=== PATIENT | male | born 1980 | race Two or more races ===

== ENCOUNTER 2022-09-24 22:21 | Emergency (ER) | payer OTHER ==
[~2022-09-24] VITALS: Ht 182.9 cm; Wt 103.0 kg
[2022-09-24] MEDS ORDERED: HYDROCODONE/APAP 10-325 MG TABLET PO ONE (23:30)
[2022-09-24] MEDS ORDERED: ONDANSETRON ODT 4 MG TAB.RAPDIS SL ONE (23:30)
[2022-09-24] MEDS ORDERED: ONDANSETRON ODT 4 MG TAB.RAPDIS ONE (23:39)
[2022-09-24] MEDS ORDERED: HYDROCODONE/APAP 10-325 MG TABLET ONE (23:40)
[2022-09-25] MEDS ORDERED: HYDR-4209 PO (00:54)
[2022-09-25] MEDS ORDERED: CYCL10TA9 PO (00:54)
== END 2022-09-25 07:16 | disposition home or self-care (01) ==
LOC: ER 22:25
DX: S16.1XXA Strain of muscle, fascia and tendon at neck level, initial encounter (principal); S39.012A Strain of muscle, fascia and tendon of lower back, initial encounter; S20.211A Contusion of right front wall of thorax, initial encounter; V49.40XA Driver injured in collision with unspecified motor vehicles in traffic accident, initial encounter; Y92.410 Unspecified street and highway as the place of occurrence of the external cause
CPT/HCPCS: 71045; 72100; A4663; Q0162

== ENCOUNTER 2024-07-11 22:55 | Emergency (ER) | payer OTHER ==
[~2024-07-11] VITALS: Ht 182.9 cm; Wt 102.1 kg
[~2024-07-11 22:55] MED LIST: CYCL10TA9 PO; HYDR-4209 PO
[2024-07-11] MEDS ORDERED: CYCLOBENZAPRINE HCL 10 MG TABLET ONE (23:38)
[2024-07-11] MEDS ORDERED: ONDANSETRON ODT 4 MG TAB.RAPDIS ONE (23:38)
[2024-07-11] MEDS ORDERED: HYDROCODONE/APAP 10-325 MG TABLET ONE (23:38)
[2024-07-11] MEDS: CYCLOBENZAPRINE HCL 10 MG TABLET PO ONE (23:42)
[2024-07-11] MEDS: HYDROCODONE/APAP 10-325 MG TABLET PO ONE (23:42)
[2024-07-11] MEDS: ONDANSETRON ODT 4 MG TAB.RAPDIS SL ONE (23:42)
[2024-07-12] MEDS ORDERED: OXYC-128 PO (01:26)
[2024-07-12 01:40] VITALS: BP 119/68; TEMP 98.6; O2SAT 99
== END 2024-07-12 01:41 | disposition home or self-care (01) ==
LOC: ER 22:57
DX: S16.1XXA Strain of muscle, fascia and tendon at neck level, initial encounter (principal); S40.022A Contusion of left upper arm, initial encounter; Z98.890 Other specified postprocedural states; Z79.891 Long term (current) use of opiate analgesic; Z79.899 Other long term (current) drug therapy; V89.2XXA Person injured in unspecified motor-vehicle accident, traffic, initial encounter; Y93.89 Activity, other specified; Y92.89 Other specified places as the place of occurrence of the external cause; Y99.8 Other external cause status
CPT/HCPCS: 72125; 73060; A4606; A4663; Q0162

== ENCOUNTER 2025-02-02 12:18 | Emergency (ER) | payer OTHER ==
[~2025-02-02] VITALS: Ht 182.9 cm; Wt 99.8 kg
[~2025-02-02 12:18] MED LIST changes: +OXYC-128 PO
[2025-02-02] MEDS ORDERED: MORPHINE SULFATE 2 MG/1 ML DISP.SYRIN IV ONE (12:45)
[2025-02-02] MEDS ORDERED: diphenhydrAMINE 50 MG/1 ML VIAL ONE (12:52)
[2025-02-02] MEDS ORDERED: MORPHINE SULFATE 4 MG/1 ML DISP.SYRIN ONE ×2 (12:53→14:01)
[2025-02-02] MEDS ORDERED: TDAP DIPH,PERTUSS,TET VAC/PF 0.5 ML DISP.SYRIN IM ONE (12:53)
[2025-02-02] MEDS: MORPHINE SULFATE 4 MG/1 ML DISP.SYRIN IM ONE ×2 (12:54→14:02)
[2025-02-02] MEDS: diphenhydrAMINE 50 MG/1 ML VIAL IM ONE (12:54)
[2025-02-02] MEDS ORDERED: HYDR-3980 PO (12:57)
[2025-02-02] MEDS ORDERED: AMOX-430 PO (12:57)
[2025-02-02] MEDS: TDAP DIPH,PERTUSS,TET VAC/PF 0.5 ML DISP.SYRIN IM ONE (13:04)
[2025-02-02] MEDS: LIDOCAINE HCL 1% 20 ML VIAL TP ONE (13:20)
[2025-02-02] MEDS ORDERED: NEOMY/BACITRA/POLYMYXIN B OINT UD PACKET TP ONE (13:45)
[2025-02-02] MEDS: NEOMY/BACITRA/POLYMYXIN B OINT UD PACKET TP ONE (13:49)
[2025-02-02 14:20] VITALS: BP 134/72; O2SAT 98
== END 2025-02-02 14:21 | disposition home or self-care (01) ==
LOC: ER 12:20
DX: S62.647A Nondisplaced fracture of proximal phalanx of left little finger, initial encounter for closed fracture (principal); W54.0XXA Bitten by dog, initial encounter; Y93.89 Activity, other specified; Y92.89 Other specified places as the place of occurrence of the external cause; Y99.8 Other external cause status
CPT/HCPCS: 12001; 29130; 73120; 90471; 90715; 96372; 99284; J1200; J2270; A4606; A4663

== ENCOUNTER 2025-02-04 11:21 | Emergency (ER) | payer OTHER ==
[~2025-02-04] VITALS: Ht 182.9 cm; Wt 99.8 kg
[~2025-02-04 11:21] MED LIST changes: +AMOX-430 PO; +HYDR-3980 PO
[2025-02-04] MEDS ORDERED: NEOMY/BACITRA/POLYMYXIN B OINT UD PACKET TP ONE (11:59)
[2025-02-04] MEDS: NEOMY/BACITRA/POLYMYXIN B OINT UD PACKET TP ONE (12:09)
[2025-02-04 12:26] VITALS: BP 112/77; TEMP 97.9; O2SAT 99
== END 2025-02-04 12:27 | disposition home or self-care (01) ==
LOC: ER 11:21
DX: S61.237D Puncture wound without foreign body of left little finger without damage to nail, subsequent encounter (principal); Z48.00 Encounter for change or removal of nonsurgical wound dressing; X58.XXXD Exposure to other specified factors, subsequent encounter
CPT/HCPCS: A4606; A4663

== ENCOUNTER 2025-02-18 17:13 | Emergency (ER) | payer OTHER ==
[~2025-02-18] VITALS: Ht 182.9 cm; Wt 99.8 kg
[2025-02-18 17:32] VITALS: O2SAT 99
== END 2025-02-18 18:53 | disposition home or self-care (01) ==
LOC: ER 17:13
DX: S61.217D Laceration without foreign body of left little finger without damage to nail, subsequent encounter (principal); M79.639 Pain in unspecified forearm; Z48.02 Encounter for removal of sutures; X58.XXXD Exposure to other specified factors, subsequent encounter
CPT/HCPCS: A4606; A4663